=== PATIENT | female | born 1955 | race Caucasian/White ===

== ENCOUNTER 2018-09-25 23:18 | Emergency (ER) | payer OTHER ==
[~2018-09-25] VITALS: Ht 165.1 cm; Wt 104.8 kg
[2018-09-25] MEDS ORDERED: SINGULAIR 10 MG10 M1 (23:29)
[2018-09-25] MEDS ORDERED: CRESTOR40 MG (23:29)
[2018-09-25] MEDS ORDERED: PROAIR HFA8.5 GM (23:30)
[2018-09-25] MEDS ORDERED: SPIRIVA (23:30)
[2018-09-25 23:56] LABS: ABSOLUTE BASOPHILS 0.1 thou/uL (0.0-0.2); ABSOLUTE EOSINOPHILS 0.2 thou/uL (0.0-0.7); ABSOLUTE LYMPHOCYTES 2.3 thou/uL (0.8-5.3); BASOPHILS 0.5 %; EOSINOPHILS 1.6 %; HEMATOCRIT 44.2 % (37.0-47.0); HEMOGLOBIN 14.8 gm/dL (12.0-15.0); LYMPHOCYTES 20.3 %; MCHC 33.6 g/dL (28.0-37.0); MCV 92.3 fL (80.0-100.0); MONOCYTES 8.5 %; MPV 8.9 fl. (7.2-11.1); NUCLEATED RBCS 0 /100WBC; PLATELET COUNT* 233 thou/uL (150-400); POLYS 69.1 %; RBC 4.79 mil/uL (4.20-5.00); RDW-CV 13.7 % (10.5-14.5); WBC 11.6 thou/uL (4.0-11.0)
[2018-09-26 00:04] LABS: ANION GAP 7 mmol/L (7-16); BUN 20 mg/dL (7-18); CALCIUM 9.6 mg/dL (8.5-10.1); CHLORIDE 105 mmol/L (98-107); CO2 27 mmol/L (21-32); CREATININE 0.9 mg/dL (0.6-1.3); GLUCOSE 130 mg/dL (70-99); POTASSIUM 4.2 mmol/L (3.5-5.1); SODIUM 139 mmol/L (136-145)
[2018-09-26 00:07] LABS: ALBUMIN 3.8 g/dL (3.4-5.0); ALKALINE PHOSPHATASE 71 U/L (46-116); SGOT 43 U/L (15-37); SGPT 37 U/L (30-65); TOTAL BILIRUBIN 0.2 mg/dL (<0.1-1.0); TOTAL PROTEIN 7.6 g/dL (6.4-8.2); TROPONIN-I LEVEL <0.06 ng/mL (<0.06)
[2018-09-26 00:08] LABS: APTT 28.5 Seconds (25.0-31.3); INR 1.1; PROTIME 10.8 Seconds (9.20-11.50)
[2018-09-26 00:46] LABS: URINE BILIRUBIN NEGATIVE (Negative); URINE BLOOD NEGATIVE (Negative); URINE CLARITY CLEAR; URINE COLOR YELLOW; URINE GLUCOSE-RANDOM NEGATIVE (Negative); URINE KETONES NEGATIVE (Negative); URINE LEUKOCYTES-REFLEX NEGATIVE (Negative); URINE NITRITE-REFLEX NEGATIVE (Negative); URINE PROTEIN NEGATIVE (Negative); URINE SPECIFIC GRAVITY 1.025 (1.005-1.030); URINE UROBILINOGEN 0.2 E.U./dl (0.2-1.0)
[2018-09-26] MEDS ORDERED: HYDROCODON-ACE1 EAC7 PO (01:58)
[2018-09-26] MEDS ORDERED: CYCLOBENZAPRINE5 MG PO (01:58)
[2018-09-26] MEDS ORDERED: TORADOL 10 MG T10 MG PO (01:58)
[2018-09-26 02:09] VITALS: BP 151/63
--- NOTE | 2018-09-26 09:01 | EKG ---
[place] [address] ELECTROCARDIOGRAM REPORT Name: NOEMI STANFORD [id number] Admission: 09/25/18 Attend Phys: Discharge: 09/26/18 Date of : 55 Report #: [id number] THIS REPORT FOR: //name// [facility] ED Test Date: 2018-09-25 Test Time: 23:32:16 Pat Name: NOEMI STANFORD Department: Room: Gender: F Assistant Associate Professor: VIV : 1955 Requested By: Cristin Ricardo Order Number: [id number] MD: Eliecer Bob Measurements Intervals [place] Rate: 95 P: 71 FL: 176 QRS: 71 QRSD: 149 T: 47 QT: 363 QTc: 457 Interpretive Statements Sinus rhythm Nonspecific intraventricular conduction delay artifact noted No previous ECG available for comparison Electronically Signed On 09-26-2018 9:00:53 [employer] by Eliecer Bob [email or web address] <ELECTRONICALLY SIGNED> By: Eliecer Bob MD, [facility] 09/26/18 0900 2332 2332 Eliecer Bob MD, FACC /EPI
== END 2018-09-26 02:11 | disposition home or self-care (01) ==
LOC: M.ERS 23:18
PROVIDERS: Personal Emergency Response Attendant
DX: M94.0 Chondrocostal junction syndrome [Tietze] (principal); F17.200 Nicotine dependence, unspecified, uncomplicated; E78.00 Pure hypercholesterolemia, unspecified; J45.909 Unspecified asthma, uncomplicated; Z88.1 Allergy status to other antibiotic agents; Z88.0 Allergy status to penicillin; Z88.2 Allergy status to sulfonamides; Z98.890 Other specified postprocedural states